=== PATIENT | female | born 1950 | race Caucasian/White ===

== ENCOUNTER 2020-12-17 14:44 | Emergency (ER) | payer BC, MEDICARE ==
[~2020-12-17] VITALS: Ht 172.7 cm; Wt 84.5 kg
[~2020-12-17 14:44] MED LIST: DILANTIN
[2020-12-17 14:54] VITALS: TEMP 98.5
[2020-12-17 16:01] VITALS: BP 127/70; PULSE 71
== END 2020-12-17 16:01 | disposition home or self-care (01) ==
LOC: COL.ER 14:44
DX: M25.531 Pain in right wrist (principal); W08.XXXA Fall from other furniture, initial encounter; Y92.009 Unspecified place in unspecified non-institutional (private) residence as the place of occurrence of the external cause

== ENCOUNTER → 2022-03-20 | Outpatient (CLI) | payer MEDICARE, BC ==
[~2022-03-20] MED LIST changes: +CIPRO 500MG TA500 MG PO; +FLAGYL500 MG PO
== END ==
LOC: COL.RAD 10:42
DX: M16.12 Unilateral primary osteoarthritis, left hip (principal)